=== PATIENT | female | born 2005 | race Caucasian/White ===

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

== ENCOUNTER 2024-01-21 13:59 | Outpatient (REF) | payer MEDICAID, SELFPAY ==
[2024-01-21 14:24] LABS: Abs Immature Grans 0.01 10^3/uL (0.0-0.06); Absolute Basophil Count 0.06 10^3/uL (0.0-0.2); Absolute Eosinophil Count 0.05 10^3/uL (0.0-0.7); Absolute Lymphocyte Count 1.38 10^3/uL (1.2-3.4); Absolute Monocyte Count 0.43 10^3/uL (0.1-0.8); Absolute Neutrophil Count 4.43 10^3/uL (1.2-6.7); Basophils % 0.9 %; ESR 9 mm/hr (0-20); Eosinophils % 0.8 %; HCT 43.5 % (36.0-46.0); HGB 14.2 g/dL (11.2-15.7); Immature Grans % 0.2 %; Lymphocytes % 21.7 %; MCH 30.1 pg (27.0-33.0); MCHC 32.6 % (32.0-36.0); MCV 92 fL (80-95); MPV 9.6 fL (8.0-11.0); Monocytes % 6.8 %; Neutrophils % 69.6 %; Platelet Count 264 10^3/uL (130-400); RBC 4.72 10^6/uL (3.93-5.22); RDW 11.4 % (11.7-14.6); WBC 6.36 10^3/uL (4.4-10.8)
[2024-01-21 15:22] LABS: ALT 24 U/L (14-59); AST 15 U/L (15-37); Albumin 4.6 g/dL (3.4-5.0); Alkaline Phosphatase 89 U/L (46-116); Anion Gap 8.9 mmol/L (3-11); BUN 8 mg/dL (7-18); Bilirubin, Total 0.42 mg/dL (0.2-1.0); CO2 29.1 mmol/L (21.0-32.0); CREATININE 0.7 mg/dL (0.55-1.02); Calcium 9.8 mg/dL (8.5-10.1); Chloride 104 mmol/L (98-107); Estimated GFR 127.69 (mL/min/1.73m2); Ferritin 31 ng/mL (8-252); Glucose 82 mg/dL (74-106); Potassium 3.9 mmol/L (3.5-5.1); Sodium 142 mmol/L (136-145); TSH (W/Ref FT4) 0.82 uIU/mL (0.52-4.13); Total Protein 8.2 g/dL (6.4-8.2)
[2024-01-21 22:13] LABS: CRP, High Sensitivity 5.05 mg/L (See Note); Rheumatoid Factor <8.6 IU/mL (<12.0)
[2024-01-22 09:52] LABS: Cyclic Citrullinated Peptide <2.5 U/mL (<5.0)
[2024-01-22 09:58] LABS: Lyme Ab w Rflx to Lyme Confirm Negative (Negative)
== END 2024-01-21 14:00 | disposition home or self-care (01) ==
LOC: NCHCN 13:59
PROVIDERS: Visit Provider Physician Assistant Medical
DX: M25.561 Pain in right knee (principal)
CPT/HCPCS: 80053; 85652; 86141; 86200; 82728; 84443; 85025; 86431; 86618